=== PATIENT | male | born 1960 | race Caucasian/White ===

== ENCOUNTER 2019-07-19 19:30 | Emergency (ER) | payer OTHER ==
[2019-07-19 20:09] VITALS: PULSE 67; TEMP 98.2; BMI 28.8
[2019-07-19] MEDS ORDERED: LOSARTAN 50MG/HCTZ 12.5MG 1 TAB (FP) PO ONE (20:19)
[2019-07-19 21:12] LABS: BASO % 0.5 % (0-2.0); EOS % 2.2 % (0-4.5); HEMOGLOBIN 15.5 GM/dl (11.7-16.9); LYMPH % 33.9 % (8-40); MCH 29.1 pg (25.7-33.7); MCHC 33.7 g/dl (32.0-35.9); MEAN CELL VOLUME 86.2 fl (80-96); MEAN PLT VOLUME 8.7 fl (7.5-11.1); MONO % 8.6 % (3.8-10.2); NEUT % 54.8 % (42.8-82.8); PLATELET COUNT 161 K/MM3 (134-434); RBC 5.33 M/mm3 (4.00-5.60); RDW 12.3 % (11.9-15.9)
[2019-07-19 21:20] LABS: ALBUMIN 4.3 g/dl (3.4-5.0); BILIRUBIN,TOTAL 0.9 mg/dl (0.2-1); CALCIUM 9.1 mg/dl (8.5-10); CREATININE 0.9 mg/dl (0.55-1.3); POTASSIUM 3.4 mmol/L (3.5-5.1); TOT PROT 6.7 g/dl (6.4-8.2)
[2019-07-19 21:22] VITALS: BP 128/82
--- NOTE | 2019-07-19 21:26 | PDOC ---
Documentation entered by Nidia Terrazas SCRIBE, acting as scribe for Pam Thomson MD. Pam Thomson MD: This documentation has been prepared by the leonidibe, Nidia Terrazas SCRIBE, under my direction and personally reviewed by me in its entirety. I confirm that the documentation accurately reflects all work, treatment, procedures, and medical decision making performed by me. History of Present Illness - General Chief Complaint: Blood Pressure Problem Stated Complaint: HTN History Source: Patient Exam Limitations: No Limitations - History of Present Illness Initial Comments: 07/19/19 20:32 The patient is a 58 year old male with a significant past medical history of HTN and HLD who presents to the emergency department with 1 week of left sided chest pain. Patient describes the pain as intermittent and radiates to his back. He states having an episode of chest pain today and measured his blood pressure which read 198/98 prompting him to the ER. He denies any recent fevers, chills, headache or dizziness. He denies any recent nausea, vomit, diarrhea or constipation. He denies any recent chest pain or shortness of breath. He denies any recent dysuria, frequency, urgency or hematuria. PAST MEDICAL HISTORY: HTN and HLD PAST SURGICAL HISTORY: no significant history FAMILY HISTORY: no pertinent history SOCIAL HISTORY: Pt lives with family and is employed. MEDICATIONS: reviewed ALLERGIES: As per nursing notes General: No fevers or chills, no weakness, no weight loss HEENT: No change in vision. No sore throat,. No ear pain CardioVascular: +chest pain. No shortness of breath Respiratory:No cough, or wheezing. Gastrointestinal: no nausea, vomiting, diarrhea or constipation, No rectal bleeding Genitourinary: No dysuria, hematuria, or frequency Musculoskeletal: No joint or muscle pain or swelling Neurologic: No headache, vertigo, dizziness or loss of consciousness Psychiatric: nor depression Skin: No rashes or easy bruising Endocrine: no increased thirst or abnormal weight change Allergic: no skin or latex allergy All other systems reviewed and normal General: Well-nourished well-developed individual, no acute distress HEENT: Throat: Normal, tonsils normal, no erythema or exudate Neck: Supple, no meningeal signs, no lymphadenopathy Eyes::Pupils equal reactive and round, extraocular motion intact Chest: Nontender to palpation Cardiac: S1-S2 normal, regular rate and rhythm, no murmurs rubs or gallops Respiratory: Lungs clear to auscultation bilateral Abdomen: Soft, nondistended, normal bowel sounds, nontender to palpation diffusely Extremities: Warm, dry, no cyanosis, clubbing, or edema Skin: No rashes Neuro: Alert and oriented x3, nonfocal exam, grossly intact, normal gait Psych: Normal mood and affect 07/19/19 21:24 Assessment and plan: This is a 58-year-old male who comes in complaining our and some nonspecific atypical type chest pain. Patient had a work-up including EKG that showed normal sinus rhythm at a rate of [address]-T wave changes normal EKG Chest x-ray was negative for any acute pathology Lab work was all normal including a negative troponin Patient's heart score is 2 Patient has an appointment with his primary care doctor which she will keep and follow-up with. Patient discharged home Past History - Past Medical History Allergies/Adverse Reactions: Allergies Allergy/AdvReac Type Severity Reaction Status Date / Time No Known Allergies Allergy Verified 07/19/19 19:31 Home Medications: Ambulatory Orders Aspirin [ASA -] 81 mg PO DAILY 07/19/19 Atorvastatin Ca [Lipitor] 10 mg PO HS 07/19/19 Hydrochlorothiazide [Hctz -] 12.5 mg PO DAILY 07/19/19 Losartan Potassium 50 mg PO DAILY 07/19/19 *Physical Exam - Vital Signs Last Vital Signs Temp Pulse Resp BP Pulse Ox 98.2 F 67 20 176/98 H 97 07/19/19 19:31 07/19/19 19:31 07/19/19 19:31 07/19/19 19:31 07/19/19 19:31 Heart Score/ECG Review - History History: Slightly suspicious - Electrocardiogram EKG: Normal - Age Age: 45-65 - Risk Factors Based on the list above the patient has:: 1-2 risk factors - Troponin Troponin: </= normal limit - Score Heart Score - Total: 2 ED Treatment Course - LABORATORY CBC & Chemistry Diagram: 07/19/19 20:32 07/19/19 20:32 - RADIOLOGY Radiology Studies Ordered: Category Date Time Status CHEST X-RAY PORTABLE* [RAD] Stat Radiology 07/19/19 20:17 Ordered Discharge - Discharge Information Problems reviewed: Yes Clinical Impression/Diagnosis: Essential hypertension, Atypical chest pain Disposition: HOME - Admission No - Follow up/Referral - Patient Discharge Instructions Additional Instructions: Return to the emergency department immediately with ANY new, persistent or worsening symptoms. Continue any medications as previously prescribed by your physician. You should follow up with your primary doctor as soon as possible regarding today's emergency department visit. . Please make sure your doctor reviews the results of your emergency evaluation. Thank you for coming to the Emergency Department today for your care. It was a pleasure to see you today. Please note that your evaluation is INCOMPLETE until you follow-up with your doctor. - Post Discharge Activity
--- NOTE | 2019-07-20 16:49 | EKG ---
Test Reason : Blood Pressure : / mmHG Vent. Rate : 065 BPM Atrial Rate : 065 BPM P-R Int : 198 ms QRS Dur : 086 ms QT Int : 414 ms P-R-T Axes : 034 -08 011 degrees QTc Int : 430 ms NORMAL SINUS RHYTHM NORMAL ECG Confirmed by MD CLAYTON, JD ([id number]) on 07/20/2019 4:49:01 PM Referred By: Julia BLANCO Confirmed By:JD ARNOLD MD
== END 2019-07-19 21:33 | disposition home or self-care (01) ==
LOC: FER 19:30
DX: R07.9 Chest pain, unspecified (principal); I10 Essential (primary) hypertension; E78.5 Hyperlipidemia, unspecified
CPT/HCPCS: 36415; 71045-TC-FY; 80053; 82550; 82553; 84484; 85025; 93005; 99285-25